=== PATIENT | male | born 1960 | race Caucasian/White ===

== ENCOUNTER 2022-09-16 09:55 | Outpatient (CLI) | payer OTHER, SELFPAY ==
--- NOTE | 2022-09-16 10:18 | XR_ITS ---
WS: [id number] Thoracic spine, 5 views, 09/16/2022 Clinical Data: CHRONIC BACK PAIN Comparison: None. Findings: No compression fractures are seen. The disc heights are normal. There is osteoarthritic spurring of the mid and lower thoracic vertebral bodies. The paravertebral re gions are normal. XR/XR thoracic spine 3V* [id number] Impression: Moderate osteoarthritis of the mid and lower thoracic vertebral bodies.
== END 2022-09-16 09:56 | disposition home or self-care (01) ==
LOC: RAD 10:04
PROVIDERS: PCP Family Medicine; Visit Provider Nurse Practitioner Family
DX: M47.815 Spondylosis without myelopathy or radiculopathy, thoracolumbar region (principal); G89.29 Other chronic pain
CPT/HCPCS: 72072